=== PATIENT | male | born 2000 | race African-American/Black ===

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

== ENCOUNTER 2025-03-22 17:11 | Inpatient (IN) ==
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
[2025-03-22] MEDS: SODIUM CHLORIDE 0.9% 1,000 ML IV ONE (17:39)
[2025-03-22 18:14] LABS: Albumin Globulin Ratio 1.5 (0.9-2); Albumin Level 4.4 gm/dl (3.4-5.0); BUN Creatinine Ratio 15.5 (10-20); Bilirubin,Total 0.7 mg/dl (0.2-1.0); Calcium 9.2 mg/dl (8.6-10.3); Creatinine Clr Calc Pharmacy 111.8 ml/min; Magnesium 1.7 mg/dl (1.7-2.4); Potassium 3.5 mmol/L (3.5-5.1); Total Protein 7.4 gm/dl (6.0-8.3)
[2025-03-22 18:17] LABS: Basophils # (auto) 0.01 K/uL (0.00-0.20); Basophils % (auto) 0.3 %; Eosinophils # (auto) 0.03 K/uL (0.00-0.50); Hematocrit (blood only) 40.8 % (42.0-52.0); Immature Granulocytes # (auto) 0.02 K/uL (0.01-0.20); Immature Granulocytes % (auto) 0.7 %; Lymphocytes # (auto) 0.51 K/uL (1.20-3.40); Lymphocytes % (auto) 17.8 %; Mean Corpuscular Hemoglobin 31.8 pg (25.0-34.0); Mean Corpuscular Hgb Conc 34.3 g/dL (32.0-36.0); Mean Corpuscular Volume 92.7 fL (80.0-100.0); Monocytes # (auto) 0.26 K/uL (0.11-0.59); Monocytes % (auto) 9.1 %; Neutrophils # (auto) 2.03 K/uL (1.40-6.50); Neutrophils % (auto) 71.1 %; Platelet Count 54 K/uL (130-400); Platelet Estimate Decreased (Normal); RDW Coefficient of Variation 11.8 % (11.5-14.5); RDW Standard Deviation 40.2 fL (36.4-46.3); White Blood Count 2.86 K/ul (4.8-10.8)
[2025-03-22 18:19] LABS: Procalcitonin 1.09 ng/ml (0-0.5)
[2025-03-22 18:20] LABS: Troponin I High Sensitivity 3.2 pg/ml (0-20)
[2025-03-22 18:28] LABS: INR 1.1 (0.9-1.1); Partial Thromboplastin Ratio 1.2; Partial Thromboplastin Time 32 Seconds (21-31); Prothrombin Time 11.8 Seconds (9.0-12.0)
[2025-03-22 18:29] LABS: Thyroid Stimulating Hormone 0.982 uIu/ml (0.300-4.500)
[2025-03-22] MEDS: OPTIRAY 320 100ml IV ONE (18:37)
[2025-03-22 18:41] LABS: Adenovirus PCR Not Detected (NotDetected); Bordetella parapertussis PCR Not Detected (NotDetected); Bordetella pertussis PCR Not Detected (NotDetected); Chlamydia pneumoniae PCR Not Detected (NotDetected); Coronavirus 229E PCR Not Detected (NotDetected); Coronavirus CoV-2 (COVID19)PCR Not Detected (NotDetected); Coronavirus HKU1 PCR Not Detected (NotDetected); Coronavirus NL63 PCR Not Detected (NotDetected); Coronavirus OC43PCR Not Detected (NotDetected); Human Metapneumovirus PCR Not Detected (NotDetected); Influenza A PCR Not Detected (NotDetected); Influenza B PCR Not Detected (NotDetected); Mycoplasma pneumoniae PCR Not Detected (NotDetected); Parainfluenza Virus 1 PCR Not Detected (NotDetected); Parainfluenza Virus 2 PCR Not Detected (NotDetected); Parainfluenza Virus 3 PCR Not Detected (NotDetected); Parainfluenza Virus 4 PCR Not Detected (NotDetected); Respiratory Syncytial VirusPCR Not Detected (NotDetected); Rhinovirus/Enterovirus PCR Not Detected (NotDetected)
[2025-03-22 18:44] LABS: Lyme Screen Rflx Confirmation Negative (Negative)
--- NOTE | 2025-03-22 19:27 | XRay Report ---
EXAM: XR chest 1V portable CLINICAL HISTORY: fever, body aches TECHNIQUE: An X-ray image of the chest is obtained in AP projection. COMPARISON: 01/05/2025. FINDINGS: Pulmonary Parenchyma: Prominent bilateral bronchovascular markings. No evidence of consolidation, collapse, or focal opacities. No pulmonary nodules are identified. No evidence of pleural effusion or pleural thickening. Heart and Mediastinum: Heart size and shape are normal. No mediastinal widening or masses. No hilar or mediastinal lymphadenopathy. Bony Thorax: Bony thorax appears intact without fractures or deformities. Soft Tissues: Soft tissues overlying the chest wall are unremarkable. IMPRESSION: Prominent bilateral bronchovascular markings. possibly due to inflammatory/infectious etiology. stable. Electronically signed by Fabian Ospina 03-22-2025 7:26 PM
[2025-03-22] MEDS: cefTRIAXone SODIUM 1,000 MG/50 ML BAG IV STA (19:44)
[2025-03-22] MEDS: ACETAMINOPHEN 325 MG TAB PO STA (19:45)
--- NOTE | 2025-03-22 20:11 | CT Scan Report ---
EXAM: CT abd pelvis IV con only CLINICAL HISTORY: Fever, abd pain, back pain. TECHNIQUE: Contrast-enhanced CT of the abdomen and pelvis was performed, with the following protocol: axial images with and reconstructed coronal and sagittal images. 90 ml optiray 320 Intravenous contrast was administered. One of the following dose reduction techniques was utilized for this exam: Automated exposure control, adjustment of the mA and/or kV according to patient size, and use of iterative reconstruction. COMPARISON: 12/26/2020 CT FINDINGS: Abdomen: Liver: Enlarged in size(21 cm), normal shape, and density. No focal lesions, cysts, or masses were identified. Hepatic vasculature and biliary ducts are unremarkable. Gallbladder and Biliary System: The gallbladder is normal in size and shape. No wall thickening, pericholecystic fluid, or gallstones were identified. The common bile duct is normal in caliber without dilation. Pancreas: The pancreatic head, body, and tail are visualized and appear normal in size and density. No pancreatic masses or calcifications were noted. The pancreatic duct is not dilated. Spleen: Enlarged in size, normal shape, and density. No splenic lesions or masses were identified. Appendix: The appendix could not be traced. Kidneys and Adrenal Glands: Both kidneys are normal in size, shape, and position. Cortical thickness is within normal limits. No renal calculi or hydronephrosis. Adrenal glands are unremarkable with no evidence of masses or hyperplasia. Pelvis: Urinary Bladder: Partially distended with mildly prominent appearing robles, could be due to underdistention. Prostate: Normal in size and contour. No focal lesions or masses identified. Seminal Vesicles: Normal in size and appearance. No abnormalities noted. Rectum and Sigmoid Colon: Normal wall thickness and no evidence of mass. Peritoneal and Retroperitoneal Structures: No free fluid or abnormal fluid collections were identified within the abdomen or pelvis. No lymphadenopathy was noted. Bowel: The visualized bowel loops are normal in caliber and appearance. No evidence of bowel obstruction or wall thickening. Loaded colon with fecal matter. Bones and Soft Tissues: unchanged 8 cm osteochondroma arising from the posterior aspect of the right iliac wing. New minimal right pleural reaction/effusion. IMPRESSION: 1. No evidence of acute intra-abdominal pathology. 2. Hepatosplenomegaly. New finding. 3. New minimal right pleural reaction/effusion. 4. Unchanged 8 cm osteochondroma arising from the posterior aspect of the right iliac wing. 5. Resolving splenic laceration and left lung lower chest contusion. Electronically signed by Fabian Ospina 03-22-2025 8:11 PM
[2025-03-22 20:32] LABS: Appearance Urine Clear (Clear); Bacteria Urine Automated None Seen (None Seen); Bilirubin Urine Negative (Negative); Blood Urine 2+ (Negative); Cast Urine Automated 0-2 /lpf (0-2); Color Urine Yellow; Epithelial Cell Urine Auto 0-2 /hpf (0-2); Glucose Urine UA Negative (Negative); Ketones Urine 2+ (Negative); Leukocyte Esterase Urine Negative (Negative); Nitrite Urine Negative (Negative); Protein Urine Trace (Negative); Specific Gravity Urine > 1.045 (1.000-1.030); Urobilinogen Urine Negative (Negative); WBC Urine Automated 0-5 /hpf (0-5); pH Urine 5.5 (4.5-7.5)
[2025-03-22] MEDS: DOXYCYCLINE HYCLATE 100 MG in DEXTROSE 5% MINI-B 100 ML IV STA (20:39)
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
[2025-03-22] MEDS ORDERED: ACETAMINOPHEN 325 MG TAB PO PRN (22:04)
[2025-03-22 22:36] LABS: EBV Nuclear Antigen IgG Ab Positive; EBV Nuclear Antigen IgG Quant > 600.0 U/mL (< 18.0)
[2025-03-22 22:38] LABS: EBV Early Antigen IgG Ab Negative (Negative); EBV Early Antigen IgG Quant < 5.0 U/mL (< 9.0); EBV IgM Quant < 10.0 U/mL (< 36.0)
[2025-03-22 22:39] LABS: EBV IgG Quant > 750.0 U/mL (< 18.0)
[2025-03-22 22:42] LABS: Hep B Surface Ag with confirm Negative (Negative)
[2025-03-22 22:48] LABS: Hep C Ab Rflx HepCQuant RNA Negative (Negative)
[2025-03-22 22:59] VITALS: PULSE 74; RESP 18
[2025-03-23 07:03] LABS: Hematocrit (blood only) 40.5 % (42.0-52.0); Hemoglobin 13.9 g/dl (14.0-18.0); Mean Corpuscular Hgb Conc 34.3 g/dL (32.0-36.0); Mean Corpuscular Volume 93.3 fL (80.0-100.0); Mean Platelet Volume 12.1 fL (9.4-12.4); Platelet Count 47 K/uL (130-400); RDW Standard Deviation 41.6 fL (36.4-46.3); Red Blood Count 4.34 M/uL (4.70-6.10); White Blood Count 2.37 K/ul (4.8-10.8)
[2025-03-23 07:22] LABS: Albumin Globulin Ratio 1.4 (0.9-2); Albumin Level 4.2 gm/dl (3.4-5.0); BUN Creatinine Ratio 10.3 (10-20); Bilirubin,Total 0.6 mg/dl (0.2-1.0); Calcium 9.1 mg/dl (8.6-10.3); Creatinine Clr Calc Pharmacy 107.9 ml/min; Globulin 3.1 gm/dl (2.5-4.0); Potassium 3.6 mmol/L (3.5-5.1); Total Protein 7.3 gm/dl (6.0-8.3)
[2025-03-23 07:25] VITALS: BP 109/68; TEMP 98.6; O2SAT 97
[2025-03-23 07:53] LABS: Basophils # (auto) 0.02 K/uL (0.00-0.20); Basophils % (auto) 0.8 %; Eosinophils # (auto) 0.02 K/uL (0.00-0.50); Eosinophils % (auto) 0.8 %; Immature Granulocytes # (auto) 0.01 K/uL (0.01-0.20); Immature Granulocytes % (auto) 0.4 %; Lymphocytes # (auto) 0.86 K/uL (1.20-3.40); Lymphocytes % (auto) 36.3 %; Monocytes # (auto) 0.25 K/uL (0.11-0.59); Monocytes % (auto) 10.5 %; Neutrophils # (auto) 1.21 K/uL (1.40-6.50); Neutrophils % (auto) 51.2 %
[2025-03-23] MEDS ORDERED: POLYETHYLENE (MIRALAX) 17 GM PACK PO PRN (08:29)
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
[2025-03-23] MEDS: DOXYCYCLINE HYCLATE 100 MG in DEXTROSE 5% MINI-B 100 ML IV SCH (09:07)
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
[2025-03-23] MEDS ORDERED: cefTRIAXone SODIUM 2,000 MG/50 ML BAG IV SCH (20:00)
--- NOTE | 2025-03-24 08:47 | Coding Query ---
SEPSIS To promote full compliance with coding requirements relating to patient care, physician participation is requested in all cases of vine fruit farming supervisor uncertainty. Please assist us with the question(s) below: In responding to this query, please exercise your independent professional judgement. The fact that a question is asked does not imply that any particular answer is desired or expected. We appreciate your clarification on this issue. Throughout the medical record, you have clearly documented a localized infection and your patient has clinical evidence of a generalized sepsis or severe sepsis. The term urosepsis is a nonspecific entity and is coded as an UTI. If the patient has sepsis, severe sepsis, from an urinary source or some other source, please clarify in your response below. The medical record reflects the following clinical findings: (With dates as appropriate) (Body temperature of >38.3 C(101 F) or <36 C(96.8F), pulse >90/minute, respirations >20/minute, WBC count >12,000 or <4,000, altered mental status, significant edema or positive fluid balance, hyperglycemia without diabetes, hypotension, metabolic acidosis (elev. lactate level, anion gap or reduced blood pH), shock, positive blood culture (enter organism) ____ ()Bacteremia (Nonspecific laboratory finding of bacteria in the blood) Specify Organism () Present on Admission () Not present on admission () Unable to clinically determine () Septicemia (Systemic disease associated with the presence of pathogenic microorganisms in the blood): Specify Organism () Present on Admission () Not present on admission () Unable to clinically determine (x) Sepsis Specify Organism anaplasmosis Specify Associated Condition/Diagnosis (x) Present on Admission () Not present on admission () Unable to clinically determine Sepsis present on admission, however, was thought to be SIRS related to viral syndrome, treated with doxycycline for possible tickborne infection. 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 That information was not available during the admission. () Severe Sepsis (Sepsis associated with acute organ dysfunction) Specify Organism Specify Associated Condition/Diagnosis () Present on Admission () Not present on admission () Unable to clinically determine () Septic Shock (Severe sepsis with acute circulatory failure, unexplained by other causes) () Present on Admission () Not present on admission () Unable to clinically determine () Other, patient has: MTDD
[2025-03-24 11:51] LABS: Chlam trach RNA(Genit,Ureth,Ur Not Detected (NotDetected); GC(Neis gon)RNA(Genit,Ureth,Ur Not Detected (NotDetected)
[2025-03-25 15:58] LABS: CMV IgM Antibody <30.00 AU/mL; Hepatitis A Antibody IgM NON-REACTIVE (NON-REACTIVE); Hepatitis B Core Antibody IgM NON-REACTIVE (NON-REACTIVE)
[2025-03-26 16:21] LABS: Babesia microti DNA Not Detected (Not Detected)
== END 2025-03-23 17:40 | disposition home or self-care (01) | DRG 872 ==
LOC: ED 17:11 → 3N 20:53 → SUATTDRO 20:53 → 3N 21:45